=== PATIENT | female | born 2000 | race African-American/Black ===

== ENCOUNTER 2022-12-29 11:52 | Day surgery (SDC) | payer OTHER ==
[2022-12-29] MEDS ORDERED: Acetaminophen 500 MG TAB ONE (12:03)
[2022-12-29] MEDS ORDERED: Iron Sucrose Complex 500 MG in Sodium Chloride 0.9% 250 ML 250 ML IVPB SCH (12:15)
[2022-12-29] MEDS ORDERED: Acetaminophen 500 MG TAB PO SCH (12:15)
== END 2022-12-29 17:00 | disposition home or self-care (01) ==
LOC: CSHSDC 11:52
PROVIDERS: ATTEND Student in an Organized Health Care Education/Training Program
DX: O99.013 Anemia complicating pregnancy, third trimester (principal); D64.9 Anemia, unspecified; Z3A.00 Weeks of gestation of pregnancy not specified
CPT/HCPCS: J1756; J7050

== ENCOUNTER 2023-01-05 18:12 | Day surgery (SDC) | payer OTHER ==
[2023-01-05 18:55] VITALS: BMI 24.0
== END 2023-01-05 19:55 | disposition home or self-care (01) ==
LOC: CSHLD/OP 18:12
PROVIDERS: ATTEND Family Medicine
DX: Z36.89 Encounter for other specified antenatal screening (principal); O35.2XX0 Maternal care for (suspected) hereditary disease in fetus, not applicable or unspecified; D56.0 Alpha thalassemia; O99.013 Anemia complicating pregnancy, third trimester; D64.9 Anemia, unspecified; O41.03X0 Oligohydramnios, third trimester, not applicable or unspecified; Z3A.35 35 weeks gestation of pregnancy; Z79.899 Other long term (current) drug therapy
CPT/HCPCS: 59025; 99282

== ENCOUNTER 2023-01-24 10:34 | Day surgery (SDC) | payer OTHER ==
[2023-01-24] MEDS ORDERED: Acetaminophen 500 MG TAB ONE (11:02)
[2023-01-24] MEDS ORDERED: Acetaminophen 500 MG TAB PO SCH (11:15)
[2023-01-24] MEDS ORDERED: Iron Sucrose Complex 500 MG in Sodium Chloride 0.9% 250 ML 250 ML IVPB SCH (11:15)
== END 2023-01-24 15:30 | disposition home or self-care (01) ==
LOC: CSHSDC 10:34
PROVIDERS: ATTEND Student in an Organized Health Care Education/Training Program
DX: O99.013 Anemia complicating pregnancy, third trimester (principal); D64.9 Anemia, unspecified; Z3A.00 Weeks of gestation of pregnancy not specified
CPT/HCPCS: J1756; J7050

== ENCOUNTER 2023-01-25 05:00 | Inpatient (IN) | payer OTHER ==
[2023-01-25 19:23] VITALS: BMI 24.7
[2023-01-25] MEDS ORDERED: Misoprostol 200 MCG TAB PR PRN (20:05)
[2023-01-25] MEDS ORDERED: Tranexamic Acid 1,000 MG/10 ML VIAL IVP PRN (20:05)
[2023-01-25] MEDS ORDERED: Ondansetron PF 4 MG/2 ML Vial IVP PRN (20:05)
[2023-01-25] MEDS ORDERED: Methylergonovine 0.2 MG/ML VIAL IM PRN (20:05)
[2023-01-25] MEDS ORDERED: Lidocaine 1% (PF) 30 ML VIAL SC PRN (20:05)
[2023-01-25] MEDS ORDERED: Carboprost 250 MCG/ML AMP IM PRN (20:05)
[2023-01-25] MEDS ORDERED: Ibuprofen 800 MG TAB PO PRN (20:05)
[2023-01-25] MEDS ORDERED: hydrALAZINE 20 MG/ML VIAL SLOW IVP PRN (20:05)
[2023-01-25] MEDS ORDERED: Promethazine HCl 25 MG/ML VIAL IM PRN (20:05)
[2023-01-25] MEDS ORDERED: Lactated Ringer's 1,000 ML IV SCH (20:15)
[2023-01-25] MEDS ORDERED: Oxytocin 30 units/NS 500 ML 500 ML IV SCH ×2 (20:15)
[2023-01-25] MEDS: Misoprostol 100 MCG TAB VAG SCH (21:10)
[2023-01-25 21:17] LABS: Hematocrit 28.2 % (34.9-44.5); Mean Corpuscular HGB CONC 31.9 g/dL (32.0-36.0); Mean Corpuscular Hemoglobin 27.7 pg (27.0-33.0); Mean Corpuscular Volume 86.8 fl (81.6-98.3); Mean Platelet Volume 11.8 fl (7.4-10.4); Platelet Count 179 10x3/uL (150-450); RBC Distribution Width 17.6 % (11.5-14.5); Red Blood Cell (RBC) Count 3.25 10x6/uL (3.90-5.03); White Blood Cell (WBC) Count 9.5 10x3/uL (3.5-10.5)
[2023-01-25 22:03] LABS: HBSAg Index 0.23 S/CO (0-0.99); Hep B Surf Ag - L&D Non-Reactive S/CO (NonReactive)
[2023-01-25 22:04] LABS: Syphilis Antibody Nonreactive (Nonreactive); Syphilis Antibody Index 0.12 S/CO (<1.00 Non-Reactive)
[2023-01-26] MEDS: Misoprostol 100 MCG TAB VAG SCH ×2 (04:52)
[2023-01-26] MEDS ORDERED: Preparation H Ointment 28 GM TUBE PR PRN (11:38)
[2023-01-26] MEDS ORDERED: Milk Of Magnesia 30 ML UDCUP PO PRN (11:38)
[2023-01-26] MEDS ORDERED: Ondansetron PF 4 MG/2 ML Vial IVP PRN (11:38)
[2023-01-26] MEDS ORDERED: Bisacodyl 10 MG SUPP PR PRN (11:38)
[2023-01-26] MEDS ORDERED: diphenhydrAMINE 25 MG CAP PO PRN (11:38)
[2023-01-26] MEDS ORDERED: Lanolin Ointment 7 GM TUBE TOP PRN (11:38)
[2023-01-26] MEDS ORDERED: Benzocaine-Menthol 82.5 ML CAN TOP PRN (11:38)
[2023-01-26] MEDS ORDERED: hydrALAZINE 20 MG/ML VIAL SLOW IVP PRN (11:38)
[2023-01-26] MEDS ORDERED: Boostrix 0.5 ML (Tdap) VIAL (>/=7 yrs of age) IM ONE (11:38)
[2023-01-26] MEDS: Ibuprofen 800 MG TAB PO SCH ×2 (14:07→21:50)
[2023-01-26] MEDS: Ferrous Sulfate 325 MG TAB PO SCH (16:58)
[2023-01-26] MEDS: Docusate 100 MG CAP PO SCH (21:50)
[2023-01-27] MEDS: Ibuprofen 800 MG TAB PO SCH (05:22)
[2023-01-27 08:11] VITALS: BP 111/61; TEMP 98.2
[2023-01-27] MEDS: Docusate 100 MG CAP PO SCH (08:55)
[2023-01-27] MEDS: Ferrous Sulfate 325 MG TAB PO SCH (08:55)
[2023-01-27] MEDS ORDERED: Acetaminophen 325 MG TAB PO SCH (09:00)
[2023-01-27] MEDS ORDERED: Prenatal Vitamin 1 TAB PO SCH (09:00)
== END 2023-01-27 12:15 | disposition home or self-care (01) | DRG 806 ==
LOC: CSHLD 19:00 → CSHPP 01-26 11:50
PROVIDERS: ADMIT Family Medicine; ATTEND Family Medicine
PROC: 10E0XZZ Delivery of Products of Conception, External Approach (ICD-10-PCS; principal; 2023-01-26)
DX: O36.5930 Maternal care for other known or suspected poor fetal growth, third trimester, not applicable or unspecified (principal); O99.12 Other diseases of the blood and blood-forming organs and certain disorders involving the immune mechanism complicating childbirth; Z37.0 Single live birth; O99.02 Anemia complicating childbirth; D64.9 Anemia, unspecified; Z3A.38 38 weeks gestation of pregnancy; D56.3 Thalassemia minor; Z14.8 Genetic carrier of other disease; O70.0 First degree perineal laceration during delivery
CPT/HCPCS: 36415; 85027; 86780; 86850; 86900; 86901; 87340; J2590; J7120

== ENCOUNTER 2023-12-20 22:05 | Emergency (ER) | payer OTHER ==
[2023-12-20 23:16] LABS: #Basophils 0.06 10x3/uL (0.0-0.2); #Eosinophils 0.48 10x3/uL (0.0-0.5); #Monocytes 1.24 10x3/uL (0.0-1.1); #Neutrophils 8.04 10x3/uL (1.5-8.4); %Basophils 0.5 % (0.0-2.0); %Eosinophils 3.8 % (0.0-6.0); %Lymphocytes 22.8 % (18.0-47.0); %Monocytes 9.7 % (0.0-10.0); Hematocrit 32.3 % (34.9-44.5); Hemoglobin 10.4 g/dL (12.0-15.5); Mean Corpuscular HGB CONC 32.2 g/dL (32.0-36.0); Mean Corpuscular Hemoglobin 28.9 pg (27.0-33.0); Mean Corpuscular Volume 89.7 fL (81.6-98.3); Mean Platelet Volume 9.9 fL (7.4-10.4); Platelet Count 324 10x3/uL (150-450); RBC Distribution Width 13.3 % (11.5-14.5); White Blood Cell (WBC) Count 12.8 10x3/uL (3.5-10.5)
[2023-12-20 23:35] LABS: ALT (SGPT) 12 U/L (8-55); AST (SGOT) 13 U/L (5-34); Alkaline Phosphatase 41 U/L (40-110); Anion Gap 14 mmol/L (10-20); BUN (Urea Nitrogen) 8 mg/dL (7.0-18.7); Bilirubin, Total 0.6 mg/dL (0.2-1.2); Calc. Creatinine Clearance 0 mL/min (70-130); Carbon Dioxide 21 mmol/L (22-29); Chloride 107 mmol/L (98-107); Estimated GFR 117; Globulin 2.9 g/dL (2.4-3.5); Glucose 91 mg/dL (70-105); Potassium 3.6 mmol/L (3.5-5.1); Protein, Total 6.9 g/dL (6.0-8.3); Sodium 138 mmol/L (136-145)
[2023-12-21 00:37] LABS: Bilirubin Neg (Negative); Blood, Urine 10 (Negative); Clarity Clear (Clear); Glucose, Urine (Dipstick) Normal (Negative); Ketone, Urine 50 mg/dL (Negative); Leukocyte 25 (Negative); Nitrite Negative (Negative); Protein, Urine (Dipstick) 30 mg/dl (Neg-Trace)
[2023-12-21 00:51] LABS: Bacteria/HPF Rare-Few HPF (None Seen); CAUTI Indications for Culture Pelvic or flank pain; Mucous/LPF 1+ LPF (<2+); RBC/HPF 0-3 HPF (0-3); Squamous Epithelial 0-3 HPF (0-3); WBC/HPF 0-3 HPF (0-3)
[2023-12-21 00:52] LABS: Urine Culture Reflex No No
== END 2023-12-21 01:45 | disposition home or self-care (01) ==
LOC: CSHERS 22:05
DX: O20.9 Hemorrhage in early pregnancy, unspecified (principal); O99.891 Other specified diseases and conditions complicating pregnancy; R82.71 Bacteriuria; Z3A.01 Less than 8 weeks gestation of pregnancy
CPT/HCPCS: 36415; 76856; 80053; 81001; 84702; 85025; 86900; 86901